=== PATIENT | female | born 1955 | race Caucasian/White ===

== ENCOUNTER → 2017-04-12 | Outpatient (CLI) | payer OTHER ==
--- NOTE | 2017-04-13 07:45 | MM ---
Reason for exam: additional evaluation requested from prior study. Last mammogram was performed 3 years and 9 months ago. History: Patient is postmenopausal. Retro-pectoral saline implants in both breasts, 1989. Taking hormonal contraceptives for 20 years beginning at age 32. Taking estrogen for 2 years beginning at age 52. Taking progesterone for 2 years beginning at age 52. Physical Findings: Nurse did not find any significant physical abnormalities on exam. MG 3D Diag Mammo Imp W/Cad SABINA Bilateral CC and MLO view(s) were taken. Prior study comparison: July 03, 2013, CAD bilateral diagnostic mammogram. December 21, 2009, bilateral diagnostic digital mammog. The breast tissue is heterogeneously dense. This may lower the sensitivity of mammography. No suspicious abnormality. These results were verbally communicated with the patient and result sheet given to the patient on 04/12/17. No significant changes when compared with prior studies. ASSESSMENT: Negative, BI-RAD 1 RECOMMENDATION: Routine screening mammogram of both breasts in 1 year.
--- NOTE | 2017-04-13 08:24 | BD ---
EXAMINATION TYPE: MG DEXA axial skeleton. DATE OF EXAM: 04/12/2017 COMPARISON: NONE CLINICAL HISTORY: 62-year-old female screening for osteoporosis Height: 5 FT 3 IN Weight: 114 FRAX RISK QUESTIONS: Alcohol (3 or more units per day): NO Family History (Parent hip fracture): NO Glucocorticoids (More than 3mos): NO (Ex: prednisone, prednisolone, methylprednisolone, dexamethasone, and hydrocortisone). History of Fracture in Adulthood: YES Secondary Osteoporosis: 1. Type 1 Diabetes: NO 2. Hyperthyroidism: NO 3. Menopause before 45: NO 4. Malnutrition: NO 5. Chronic liver disease: NO Rheumatoid Arthritis: NO Current Tobacco Use: NO RISK FACTORS HISTORY OF: Family History of Osteoporosis: YES Active: YES Postmenopausal woman: AGE 52 How long: TOOK PREMARIN FOR SIX YEARS MEDICATIONS: Additional Medications: NONE Additional History: EXAM MEASUREMENTS: Bone mineral densitometry was performed using the [employer] System. Bone mineral density as measured about the Lumbar spine is: ----- L1-L4(G/cm2): 0.748 T Score Values are as follows: ----- L2: -4.6 ----- L3: -3.5 ----- L4: -2.9 ----- L1-L4: -3.6 Bone mineral density has: DECREASED -10.2 % since study of: 2013 Bone mineral density about the R hip (g/cm2): 0.780 Bone mineral density about the L hip (g/cm2): 0.658 T Score values are as follows: -----R Neck: -1.9 -----L Neck: -2.7 -----R Total: -2.0 -----L Total: -2.6 Bone mineral density has: DECREASED -11.9 % since study of: 2013 IMPRESSION: Osteoporosis (T Score less than -2.5) as noted by T Score values at the There is increased fracture risk and therapy is usually indicated based on age. Re-Screen 1-2 years. NOTE: T-SCORE=SD OF THE YOUNG ADULT MEAN.
== END | disposition home or self-care (01) ==
LOC: RADMAMWWP 13:30
PROVIDERS: ATTEND Family Medicine
DX: Z13.820 Encounter for screening for osteoporosis (principal); M81.0 Age-related osteoporosis without current pathological fracture; Z98.82 Breast implant status
CPT/HCPCS: 77080; 77066; G0279

== ENCOUNTER → 2021-03-09 | Outpatient (CLI) | payer OTHER ==
--- NOTE | 2021-03-10 12:44 | MM ---
Reason for exam: screening (asymptomatic). Last mammogram was performed 3 years and 11 months ago. History: Patient is postmenopausal. Retro-pectoral saline implants in both breasts, 1989. Taking hormonal contraceptives for 20 years beginning at age 32. Taking estrogen for 2 years beginning at age 52. Taking progesterone for 2 years beginning at age 52. Physical Findings: A clinical breast exam by your physician is recommended on an annual basis and results should be correlated with mammographic findings. MG 3D Screen Mammo Imp/Cad Bilateral CC, MLO, and ID view(s) were taken. Prior study comparison: April 12, 2017, bilateral MG 3d diag mammo imp w/cad SABINA. July 03, 2013, CAD bilateral diagnostic mammogram. There are scattered fibroglandular densities. Post operative changes, stable. No significant changes when compared with prior studies. ASSESSMENT: Benign, BI-RAD 2 RECOMMENDATION: Routine screening mammogram of both breasts in 1 year.
== END | disposition home or self-care (01) ==
LOC: RADMAMWWP 14:43
PROVIDERS: ATTEND Family Medicine
DX: Z12.31 Encounter for screening mammogram for malignant neoplasm of breast (principal); Z78.0 Asymptomatic menopausal state
CPT/HCPCS: 77063; 77067

== ENCOUNTER → 2021-12-21 | Outpatient (CLI) | payer OTHER ==
--- NOTE | 2021-12-21 11:00 | BD ---
EXAMINATION TYPE: Axial Bone Density DATE OF EXAM: 12/21/2021 COMPARISON: NONE CLINICAL HISTORY: 66 year old Female. ICD-10 CODE: M89.9 Disorder of bone Height: 64 Weight: 122.9 FRAX RISK QUESTIONS: Alcohol (3 or more units per day): no Family History (Parent hip fracture): no Glucocorticoids (More than 3mos): no (Ex: prednisone, prednisolone, methylprednisolone, dexamethasone, and hydrocortisone). History of Fracture in Adulthood: no Secondary Osteoporosis: 1. Type 1 Diabetes: no 2. Hyperthyroidism: no 3. Menopause before 45: no 4. Malnutrition: yes 5. Chronic liver disease: no Rheumatoid Arthritis: no Current Tobacco Use: no RISK FACTORS HISTORY OF: History of Wrist Fracture: left When: as a child Surgery to Spine/Hip(right/left)/Wrist (right/left): no Family History of Osteoporosis: yes Active: yes Diet low in dairy products/other sources of calcium: yes Postmenopausal woman: yes Lost more than 2 inches in height since high school: no MEDICATIONS: Osteoporosis Medications: How Long: flumodine Additional History: EXAM MEASUREMENTS: Bone mineral densitometry was performed using the [employer] System. Bone mineral density as measured about the Lumbar spine is: ----- L1-L4(G/cm2): 0.953 T Score Values are as follows: ----- L1: -2.4 ----- L2: -2.5 ----- L3: -1.3 ----- L4: -1.7 ----- L1-L4: -1.9 Bone mineral density has: increased 28.0 % since study of: 04.12.2017 Bone mineral density about the R hip (g/cm2): 0.874 Bone mineral density about the L hip (g/cm2): 0.733 T Score values are as follows: -----R Neck: -1.2 -----L Neck: -2.2 -----R Total: -1.3 -----L Total: -1.9 Bone mineral density has: increased 12.3 % since study of: 04.12.2017 FRAX%s: The graph provided illustrates a 10.9% chance for a major osteoporotic fx and a 1.9% chance f or the hips probability for fx in 10 years time. IMPRESSION: Osteopenia (T Score between -2.5 and -1). There is slightly increased risk of fracture and the patient may be considered for treatment. Re-Screen 2-5 years. NOTE: T-SCORE=SD OF THE YOUNG ADULT MEAN.
== END | disposition home or self-care (01) ==
LOC: RADBDWWP 09:12
PROVIDERS: ATTEND Family Medicine
DX: M85.89 Other specified disorders of bone density and structure, multiple sites (principal)
CPT/HCPCS: 77080

== ENCOUNTER → 2024-05-30 | Outpatient (CLI) | payer OTHER ==
--- NOTE | 2024-05-30 14:42 | BD ---
EXAMINATION TYPE: Axial Bone Density DATE OF EXAM: 05/30/2024 CLINICAL HISTORY: 69 years old Female. ICD-10 CODE: M81.0 AGE RELATED OSTEOPOROSIS , Additional His tory: Height: Weight: FRAX RISK QUESTIONS: Alcohol (3 or more units per day): no Family History (Parent hip fracture): no Glucocorticoids (More than 3mos): no (Ex: prednisone, prednisolone, methylprednisolone, dexamethasone, and hydrocortisone). History of Fracture in Adulthood: left wrist Secondary Osteoporosis: 1. Type 1 Diabetes: no 2. Hyperthyroidism: no 3. Menopause before 45: no 4. Malnutrition: yes 5. Chronic liver disease: no Rheumatoid Arthritis: no Current Tobacco Use: no RISK FACTORS HISTORY OF: History of Wrist Fracture: left When: as a child Surgery to Spine/Hip(right/left)/Wrist (right/left): no MEDICATIONS: Osteoporosis Medications: stopped taking 6 months ago EXAM MEASUREMENTS: Bone mineral densitometry was performed using the [employer] System. Bone mineral density as measured about the Lumbar spine is: ----- L1-L4(G/cm2): 0.925 T Score Values are as follows: ----- L1: -2.7 ----- L2: -2.9 ----- L3: -1.8 ----- L4: -1.5 ----- L1-L4: -2.1 Z Score Values are as follows: ----- L1: -0.8 ----- L2: -1.1 ----- L3: 0.1 ----- L4: 0.4 ----- L1-L4: -0.2 Bone mineral density has: decreased -2.7 % since study of: 12.21.2021 Bone mineral density about the R hip (g/cm2): 0.845 Bone mineral density about the L hip (g/cm2): 0.771 T Score values are as follows: -----R Neck: -1.3 -----L Neck: -2.2 -----R Total: -1.3 -----L Total: -1.9 Z Score values are as follows: -----R Neck: 0.5 -----L Neck: -0.5 -----R Total: 0.2 -----L Total: -0.4 Bone mineral density has: increased 0.4 % since study of: 9..2021 FRAX%s: The graph provided illustrates a 11.4% chance for a major osteoporotic fx and a 2.3% chance f or the hips probability for fx in 10 years time. IMPRESSION: Osteopenia (T Score between -2.5 and -1). There is slightly increased risk of fracture and the patient may be considered for treatment. Re-Screen 2-5 years. NOTE: T-SCORE=SD OF THE YOUNG ADULT MEAN. [facility], , 05/30/2024 2:40 PM
--- NOTE | 2024-05-31 07:51 | MM ---
Reason for Exam: Screening (asymptomatic). Last mammogram was performed 3 year(s) and 3 month(s) ago. Patient History: Menarche at age 14. First Full-Term at age 18. Postmenopausal. Estrogen, starting at age 52 for 2 years. Progesterone, starting at age 52 for 2 years. Currently using Hormonal Contraceptives, beginning at age 32 for 20 years. 1990, Bilateral Implants. Risk Values: Radha 5 year model risk: 1.2%. NCI Lifetime model risk: 4.2%. Prior Study Comparison: 07/03/2013 Bilateral Diagnostic Mammogram, [facility]. 04/12/2017 Bilateral Diagnostic Mammogram, [facility]. 03/09/2021 Bilateral Screening Mammogram, [facility]. Tissue Density: The breasts are heterogeneously dense, which may obscure small masses. Findings: Analyzed By CAD. Bilateral retropectoral saline implants redemonstrated. There is no suspicious group of microcalcifications or new suspicious mass in either breast. Overall Assessment: Negative, BI-RAD 1 Management: Screening Mammogram of both breasts in 1 year. Patient should continue monthly self-breast exams. A clinical breast exam by your physician is recommended on an annual basis. This exam should not preclude additional follow-up of suspicious palpable abnormalities. Note on Radha scores and lifetime risk: 1. A Radha score greater than 3% is considered moderate risk. If this is the case, consider specialist referral to assess eligibility for a risk reducing agent. 2. If overall lifetime risk for the development of breast cancer is 20% or higher, the patient may qualify for future screening with alternating mammogram and breast MRI. [facility], , 05/31/2024 7:49 AM. Electronically signed and approved by: Elmer Foster M.D. Radiologist
== END | disposition home or self-care (01) ==
LOC: RADBDWWP 13:34
PROVIDERS: ATTEND Internal Medicine Geriatric Medicine
DX: Z12.31 Encounter for screening mammogram for malignant neoplasm of breast (principal); R92.333 Mammographic heterogeneous density, bilateral breasts; M81.0 Age-related osteoporosis without current pathological fracture; M85.89 Other specified disorders of bone density and structure, multiple sites; Z78.0 Asymptomatic menopausal state; Z92.0 Personal history of contraception
CPT/HCPCS: 77063; 77067; 77080